=== PATIENT | male | born 1935 ===

== ENCOUNTER 2017-03-12 20:16 | Emergency (ER) | payer MEDICARE, SELFPAY ==
[2017-03-12 20:17] VITALS: BMI 28.3
--- NOTE | 2017-03-12 20:39 | C.PDOC ---
History Of Present Illness Patient is a 81 y/o male who presents to the ED with complaints of nausea, vomiting, and diarrhea for the last 3 days. Patient reports to have arrived from [place] last night; denies any SOB, fever, or chills. Patient notes decreased PO intake and is speaking in complete sentences. Patient has not vomited today, but notes feeling nauseous. No other physical complaints at this time. Time Seen by Provider: 03/12/17 20:38 Chief Complaint (Nursing): Abdominal Pain History Per: Patient History/Exam Limitations: no limitations Onset/Duration Of Symptoms: Days (3 days ago) Current Symptoms Are (Timing): Still Present Severity: Moderate Pain Scale Rating Of: 4 Associated Symptoms: Nausea, Vomiting, Diarrhea Recent travel outside of the [place]: Yes ([place]; arrived last night) Additional History Per: Patient Past Medical History Reviewed: Historical Data, Nursing Documentation, Vital Signs Vital Signs: Last Vital Signs Temp 97.4 F L 03/12/17 20:28 Pulse 86 03/12/17 23:44 Resp 21 03/12/17 23:44 BP 104/48 L 03/12/17 23:44 Pulse Ox 98 03/12/17 23:44 - Medical History PMH: Asthma, Gastritis, HTN, Pneumonia Surgical History: No Surg Hx - [facility] Procedures VACCINATION NEC (11/10/12) Family History: States: No Known Family Hx - Social History Hx Tobacco Use: No Hx Alcohol Use: No Hx Substance Use: No - Immunization History Hx Tetanus Toxoid Vaccination: No Hx Influenza Vaccination: Yes Hx Pneumococcal Vaccination: Yes Review Of Systems Constitutional: Negative for: Fever, Chills Respiratory: Positive for: Other (speaking in full sentences). Negative for: Shortness of Breath Gastrointestinal: Positive for: Nausea, Vomiting, Diarrhea, Other (decreased PO intake) Physical Exam - Physical Exam Appears: Non-toxic, No Acute Distress Skin: Warm, Dry Head: Normacephalic Oral Mucosa: Moist Chest: Symmetrical Cardiovascular: Rhythm Regular Respiratory: No Rales, No Rhonchi, No Wheezing Gastrointestinal/Abdominal: Soft, No Tenderness, Distention, No Guarding, No Ascites, Other (tympanic to percussion) Back: No CVA Tenderness Extremity: Normal ROM Neurological/Psych: Oriented x3, Normal Speech, Other (no focal deficits) ED Course And Treatment - Laboratory Results Result Diagrams: 03/12/17 21:50 03/12/17 21:50 ECG: Interpreted By Me, Viewed By Me ECG Rhythm: Sinus Rhythm (93), Nonspecific Changes O2 Sat by Pulse Oximetry: 97 Pulse Ox Interpretation: Normal Progress Note: Plan: EKG, UA, and blood work ordered. Pepcid, zofran, and IV fluids administered. Reevaluation Time: 00:49 Reassessment Condition: Improved Disposition Counseled Patient/Family Regarding: Studies Performed, Diagnosis, Need For Followup, Rx Given - Disposition Referrals: David Streeter MD [Staff Provider] - Disposition: HOME/ ROUTINE Disposition Time: 20:38 Condition: FAIR Additional Instructions: Please return if symptoms recur Prescriptions: Ondansetron ODT [Zofran ODT] 1 odt PO BID PRN #6 odt PRN Reason: Nausea/Vomiting Pantoprazole Sodium [Protonix] 20 mg PO DAILY #15 ect Instructions: Abdominal Pain (ED), Gas and Bloating (ED), Gastritis (DC) Forms: [employer] [facility] (Sinhala) - Clinical Impression Clinical Impression: Abdominal pain, Diarrhea - Scribe Statement The provider has reviewed the documentation as recorded by the Scribe Renee Villarreal All medical record entries made by the Scribe were at my direction and personally dictated by me. I have reviewed the chart and agree that the record accurately reflects my personal performance of the history, physical exam, medical decision making, and the department course for this patient. I have also personally directed, reviewed, and agree with the discharge instructions and disposition.
[2017-03-12] MEDS ORDERED: Sodium Chloride 0.9% 1,000 ML IV ONE (21:42)
[2017-03-12] MEDS ORDERED: Sodium Chloride 0.9% 1,000 ML ONE (21:53)
[2017-03-12 22:00] LABS: BASO % 0.5 % (0.0-2.0); EOS # 0.3 K/uL (0.0-0.7); EOS % 3.8 % (0.0-4.0); HEMOGLOBIN 11.7 g/dL (12.0-18.0); LYMPH # 2.1 K/uL (1.0-4.3); LYMPH % 26.1 % (20.0-40.0); MEAN CELL VOLUME 80.5 fL (80.0-94.0); MEAN CORPUSCULAR HEMOGLOBIN 28.1 pg (27.0-31.0); MEAN PLATELET VOLUME 7.4 fL (7.2-11.7); MONO # 1.4 K/uL (0.0-0.8); MONO % 17.4 % (0.0-10.0); NEUT # 4.2 K/uL (1.8-7.0); NEUT % 52.2 % (50.0-75.0); RBC 4.15 Mil/uL (4.40-5.90); RED CELL DISTRIBUTION WIDTH 14.1 % (11.5-14.5); WHITE BLOOD COUNT 8.1 K/uL (4.8-10.8)
[2017-03-12 22:09] LABS: INR 1.4; PROTHROMBIN TIME 15.4 SECONDS (9.7-12.2)
[2017-03-12 22:29] LABS: URINE BACTERIA RARE (<OCC); URINE BILIRUBIN NEGATIVE (NEGATIVE); URINE BLOOD NEGATIVE (NEGATIVE); URINE CLARITY Clear (Clear); URINE COLOR Straw (YELLOW); URINE GLUCOSE (UA) NORMAL (Normal); URINE LEUKOCYTE ESTERASE NEG Leu/uL (Negative); URINE NITRATE NEGATIVE (NEGATIVE); URINE PROTEIN NEGATIVE (NEGATIVE); URINE UROBILINOGEN NORMAL mg/dL (0.2-1.0)
[2017-03-12 23:03] LABS: ALB/GLOB RATIO 1.2 (1.0-2.1); ALBUMIN 3.7 g/dL (3.5-5.0); ALT/SGPT 29 U/L (21-72); AST/SGOT 37 U/L (17-59); BLOOD UREA NITROGEN 16 mg/dL (9-20); CALCIUM 8.6 mg/dl (8.6-10.4); GFR AFRICAN-AMERICAN > 60; GFR NON-AFRICAN AMERICAN 53; LIPASE 121 U/L (23-300)
[2017-03-12] MEDS ORDERED: Iohexol 350mg/ml 100 ML ONE (23:22)
--- NOTE | 2017-03-13 00:20 | CT ---
EXAM: CT Abdomen and Pelvis With Intravenous Contrast EXAM DATE/TIME: 03/12/2017 11:06 PM CLINICAL HISTORY: 81 years old, male; Pain; Abdominal pain; Patient HX: 11-10-12 images sent; Additional info: Abd pain TECHNIQUE: Axial computed tomography images of the abdomen and pelvis with intravenous contrast. All CT scans at this facility use one or more dose reduction techniques, viz.: automated exposure control; ma/kV adjustment per patient size (including targeted exams where dose is matched to indication; i.e. head); or iterative reconstruction technique. Coronal and sagittal reformatted images were created and reviewed. CONTRAST: 100 mL of [id number] administered intravenously. COMPARISON: CT - CHEST,ABD,PEL W/IV PO CONTRAST 2012-11-10 19:51 FINDINGS: Lower thorax: Heart size is normal. There is a small hiatal hernia. There is minimal atelectasis and scarring at the lung bases. ABDOMEN: Liver: There is fatty infiltration of the liver. Gallbladder and bile ducts: Gallbladder is partially distended. Common duct is prominent. Pancreas: Pancreas is mildly atrophic. Spleen: unremarkable Adrenals: unremarkable Kidneys and ureters: There is a small left renal cyst. There are additional small bilateral low-attenuation renal lesions too small to accurately characterize. There is no pelvocaliectasis or ureterectasis. Stomach and bowel: Stomach is almost empty. Rotation is normal. Small bowel is mildly distended with fluid and air. There is no obstruction. Terminal ileum is unremarkable. Appendix is not visualized. There is no pericecal inflammation. Colon is incompletely distended which limits evaluation. surgical clips at the base of the cecum. Appendix: See stomach and bowel PELVIS: Bladder: Bladder is partially distended. Reproductive: Seminal vesicles and prostate are unremarkable. ABDOMEN and PELVIS: Intraperitoneal space: There is no free air or free fluid. Bones/joints: There are degenerative changes in the osseus structures. Soft tissues: There is a small fat-containing umbilical hernia Nodes: There is no pathologic adenopathy. IMPRESSION: No acute solid visceral abnormality; possible ileus, no obstruction Additional nonemergent findings as described above.
[2017-03-13] MEDS ORDERED: Potassium Chloride 10 mEq ER Tab PO STA (00:52)
[2017-03-13 01:21] VITALS: BP 118/66; PULSE 88; RESP 20; TEMP 98.4; O2SAT 98
--- NOTE | 2017-03-17 15:52 | CARD ---
APPROVED REPORT EKG Measurement Heart [id number] <Conclusion> Normal sinus rhythm Normal ECG
== END 2017-03-13 01:19 | disposition home or self-care (01) ==
LOC: C.ER 20:16
DX: R10.9 Unspecified abdominal pain (principal); R19.7 Diarrhea, unspecified; E87.6 Hypokalemia
CPT/HCPCS: 74177; 80053; 81001; 83690; 85025; 85610; 85730; 96374; 96375; 99285; J2405; J7040; Q9967

== ENCOUNTER 2018-03-10 09:21 | Outpatient (CLI) | payer MEDICARE | END 2018-03-10 09:22 | disposition home or self-care (01) | LOC: C.CARD 09:21 | DX: R94.31 Abnormal electrocardiogram [ECG] [EKG] (principal) ==

== ENCOUNTER 2018-05-23 15:47 | Observation (INO) | payer MEDICARE ==
[2018-05-23 15:47] VITALS: BMI 28.3
--- NOTE | 2018-05-23 16:47 | C.PDOC ---
History Of Present Illness Patient is a 82 year old male who presents to the ED with his family for evaluation after family saw his eyes roll back and patient became dizzy while sitting on the bed an hour ago today. Patient's family also reports that patient has been coughing a lot and he has started c/o dry tongue and burning lower abdominal pain while in the ED. Patient's family denies any fever, chills, syncopal episodes, CP, SOB, nausea, vomiting, or diarrhea. Time Seen by Provider: 05/23/18 16:21 Chief Complaint (Nursing): Flu-like Symptoms History Per: Patient, Family History/Exam Limitations: no limitations Onset/Duration Of Symptoms: Hrs Recent travel outside of the [place]: No Additional History Per: Patient, Family Past Medical History Reviewed: Historical Data, Nursing Documentation, Vital Signs Vital Signs: Last Vital Signs Temp 98.5 F 05/23/18 15:50 Pulse 92 H 05/23/18 15:50 Resp 19 05/23/18 15:50 BP 138/68 05/23/18 15:50 Pulse Ox 96 05/23/18 15:50 - Medical History PMH: Asthma, Gastritis, HTN, Pneumonia Surgical History: Appendectomy - [facility] Procedures VACCINATION NEC (11/10/12) Family History: States: No Known Family Hx - Social History Hx Tobacco Use: No Hx Alcohol Use: No Hx Substance Use: No - Immunization History Hx Tetanus Toxoid Vaccination: No Hx Influenza Vaccination: Yes Hx Pneumococcal Vaccination: Yes Review Of Systems Except As Marked, All Systems Reviewed And Found Negative. Constitutional: Negative for: Fever, Chills ENT: Positive for: Other (dry tongue) Cardiovascular: Negative for: Palpitations Respiratory: Positive for: Cough. Negative for: Shortness of Breath Gastrointestinal: Positive for: Abdominal Pain (lower). Negative for: Nausea, Vomiting Neurological: Positive for: Dizziness Physical Exam - Physical Exam Appears: Non-toxic, No Acute Distress Skin: Normal Color, Warm, Dry Head: Atraumatic, Normacephalic Chest: Symmetrical, No Deformity Cardiovascular: Rhythm Regular, No Murmur Respiratory: No Rales, No Rhonchi, No Wheezing, Other (NARD) Extremity: Normal ROM ED Course And Treatment - Laboratory Results Result Diagrams: 05/23/18 16:59 05/23/18 16:59 ECG: Interpreted By Me ECG Rhythm: Sinus Rhythm ECG Interpretation: Normal Rate From EC O2 Sat by Pulse Oximetry: 96 (on RA ) Pulse Ox Interpretation: Normal - Radiology CXR: Interpreted by Me CXR Interpretation: Yes: No Acute Disease Progress Note: Plan: VBG. EKG. Labs. Urinalysis Progress - Re-Evaluation Re-evaluation Note: 05/23/18 17:47 NO RECUR SX SINCE INITIAL EVAL. APEARS COMFORTABLE. ADMIT SYNCOPE VS SZ D/W DR RIDDLE WILL ADMIT - Data Reviewed Data Reviewed: Lab, Diagnostic imaging, EKG, Old records Disposition Counseled Patient/Family Regarding: Studies Performed, Diagnosis - Disposition Disposition: HOSPITALIZED Disposition Time: 17:47 Condition: STABLE Forms: [employer] [facility] (Moroccan) - Clinical Impression Clinical Impression: Syncope - Scribe Statement The provider has reviewed the documentation as recorded by the Lotusibjaun Garcia All medical record entries made by the Scribe were at my direction and personally dictated by me. I have reviewed the chart and agree that the record accurately reflects my personal performance of the history, physical exam, medical decision making, and the department course for this patient. I have also personally directed, reviewed, and agree with the discharge instructions and disposition.
[2018-05-23 17:15] LABS: BASO % 0.2 % (0.0-2.0); EOS # 0.6 K/uL (0.0-0.7); HEMOGLOBIN 12.6 g/dL (12.0-18.0); LYMPH # 3.2 K/uL (1.0-4.3); LYMPH % 16.3 % (20.0-40.0); MEAN CELL VOLUME 80.6 fL (80.0-94.0); MEAN CORPUSCULAR HEMOGLOBIN 26.4 pg (27.0-31.0); MEAN CORPUSCULAR HGB CONC 32.7 g/dL (33.0-37.0); MEAN PLATELET VOLUME 7.6 fL (7.2-11.7); MONO # 2.2 K/uL (0.0-0.8); NEUT # 13.7 K/uL (1.8-7.0); NEUT % 69.5 % (50.0-75.0); NRBC % 0.1 % (0.0-2.0); RBC 4.78 Mil/uL (4.40-5.90); RED CELL DISTRIBUTION WIDTH 14.2 % (11.5-14.5)
[2018-05-23 17:18] LABS: WHITE BLOOD COUNT 19.7 K/uL (4.8-10.8)
[2018-05-23 17:20] LABS: ALB/GLOB RATIO 1.6 (1.0-2.1); ALBUMIN 4.5 g/dL (3.5-5.0); ALT/SGPT 12 U/L (21-72); AST/SGOT 27 U/L (17-59); BLOOD UREA NITROGEN 23 mg/dL (9-20); CALCIUM 9.6 mg/dl (8.6-10.4); GFR NON-AFRICAN AMERICAN 58
[2018-05-23 17:24] LABS: VENOUS BLOOD GAS BASE EXCESS -1.1 mmol/L (0.0-2.0); VENOUS BLOOD GAS PCO2 42 mmHg (40-60); VENOUS BLOOD GAS PO2 30 mm/Hg (30-55); VENOUS BLOOD PH 7.37 (7.32-7.43)
--- NOTE | 2018-05-23 17:38 | RAD ---
Date of service: 05/23/2018 PROCEDURE: CHEST RADIOGRAPH, 1 VIEW HISTORY: AMS COMPARISON: 11/10/2012. FINDINGS: LUNGS: Clear. PLEURA: No pneumothorax or pleural fluid seen. CARDIOVASCULAR: No aortic atherosclerotic calcification present. Normal. OSSEOUS STRUCTURES: No significant abnormalities. VISUALIZED UPPER ABDOMEN: Normal. OTHER FINDINGS: None. IMPRESSION: No active disease.No significant interval change compared to the prior examination(s).
[2018-05-23 18:21] VITALS: RESP 20
[2018-05-23 18:25] LABS: URINE BILIRUBIN NEGATIVE (NEGATIVE); URINE BLOOD NEGATIVE (NEGATIVE); URINE CLARITY Clear (Clear); URINE COLOR Yellow (YELLOW); URINE GLUCOSE (UA) NORMAL (Normal); URINE LEUKOCYTE ESTERASE NEG Leu/uL (Negative); URINE PROTEIN NEGATIVE (NEGATIVE); URINE UROBILINOGEN NORMAL mg/dL (0.2-1.0)
--- NOTE | 2018-05-23 18:44 | CT ---
Date of service: 05/23/2018 PROCEDURE: CT HEAD WITHOUT CONTRAST. HISTORY: AMS COMPARISON: None available. TECHNIQUE: Axial computed tomography images were obtained through the head/brain without intravenous contrast. Radiation dose: Total exam DLP = 897.23 mGy-cm. This CT exam was performed using one or more of the following dose reduction techniques: Automated exposure control, adjustment of the mA and/or kV according to patient size, and/or use of iterative reconstruction technique. FINDINGS: HEMORRHAGE: No intracranial hemorrhage. BRAIN: Diffuse atrophy with prominence of the ventricles and sulci noted. No mass effect or edema. Dense intracranial atherosclerosis. Patchy right frontal and occipital encephalomalacia. Mild to moderate periventricular and subcortical white matter hypodensities, which are nonspecific, but often seen with chronic microvascular ischemic disease. Please note that MRI with diffusion imaging is more sensitive in the detection of acute ischemic event. VENTRICLES: No hydrocephalus. CALVARIUM: Unremarkable. PARANASAL SINUSES: Extensive opacification of the ethmoid air cells, bilateral frontal, maxillary, and sphenoid sinuses. MASTOID AIR CELLS: Under aeration of the mastoid air cells; correlate clinically for history of mastoiditis. OTHER FINDINGS: None. IMPRESSION: Patchy right frontal and occipital encephalomalacia. Mild moderate nonspecific white matter changes. Generalized atrophy. Extensive opacification of the ethmoid air cells, bilateral frontal, maxillary, and sphenoid sinuses. Under aeration of the mastoid air cells; correlate clinically for history of mastoiditis.
[2018-05-23] MEDS: (Novolin R) Insulin Human Regular 100 units/ml vial SC SCH (21:19)
[2018-05-23] MEDS: guaiFENesin 600 mg ER Tab PO SCH (21:20)
--- NOTE | 2018-05-23 21:44 | CP.PCM.HP ---
Present on Admission - Present on Admission Any Indicators Present on Admission: No Past Patient History - Infectious Disease Hx of Infectious Diseases: None - Past Social History Smoking Status: Never Smoked - CARDIAC Hx Hypertension: Yes - PULMONARY Hx Asthma: Yes Hx Pneumonia: Yes - NEUROLOGICAL HX Cerebrovascular Accident: Yes - GASTROINTESTINAL Hx Gastritis: Yes - PSYCHIATRIC Hx Substance Use: No - SURGICAL HISTORY Hx Appendectomy: Yes - ANESTHESIA Hx Anesthesia: No Meds Allergies/Adverse Reactions: Allergies Allergy/AdvReac Type Severity Reaction Status Date / Time Penicillins Allergy Severe Verified 05/23/18 15:58 Results - Vital Signs Recent Vital Signs: Last Vital Signs Temp 98 F 05/23/18 20:05 Pulse 86 05/23/18 20:05 Resp 20 05/23/18 20:05 BP 158/80 H 05/23/18 20:05 Pulse Ox 96 05/23/18 20:05 - Labs Result Diagrams: 05/23/18 16:59 05/23/18 16:59 Labs: Laboratory Results - last 24 hr 05/23/18 05/23/18 05/23/18 16:03 16:59 16:59 WBC 19.7 H D RBC 4.78 Hgb 12.6 Hct 38.5 MCV 80.6 MCH 26.4 L MCHC 32.7 L RDW 14.2 Plt Count 310 MPV 7.6 Neut % (Auto) 69.5 Lymph % (Auto) 16.3 L Ross % (Auto) 11.0 H Eos % (Auto) 3.0 Baso % (Auto) 0.2 Neut # (Auto) 13.7 H Lymph # (Auto) 3.2 Ross # (Auto) 2.2 H Eos # (Auto) 0.6 Baso # (Auto) 0.0 D-Dimer, Quantitative pO2 VBG pH VBG pCO2 VBG HCO3 VBG Total CO2 VBG O2 Sat (Calc) VBG Base Excess VBG Potassium Glucose Lactate Sodium 132 Potassium 4.1 Chloride 95 L Carbon Dioxide 28 Anion Gap 12 BUN 23 H Creatinine 1.2 Est GFR ( Amer) > 60 Est GFR (Non-Af Amer) 58 POC Glucose (mg/dL) 120 H Random Glucose 119 H Calcium 9.6 Total Bilirubin 0.3 AST 27 ALT 12 L D Alkaline Phosphatase 57 Troponin I < 0.0120 Total Protein 7.3 Albumin 4.5 Globulin 2.8 Albumin/Globulin Ratio 1.6 Venous Blood Potassium Urine Color Urine Clarity Urine pH Ur Specific [place] Urine Protein Urine Glucose (UA) Urine Ketones Urine Blood Urine Nitrate Urine Bilirubin Urine Urobilinogen Ur Leukocyte Esterase Urine WBC (Auto) Urine RBC (Auto) 05/23/18 05/23/18 05/23/18 16:59 17:16 17:50 WBC RBC Hgb Hct MCV MCH MCHC RDW Plt Count MPV Neut % (Auto) Lymph % (Auto) Ross % (Auto) Eos % (Auto) Baso % (Auto) Neut # (Auto) Lymph # (Auto) Ross # (Auto) Eos # (Auto) Baso # (Auto) D-Dimer, Quantitative 204 pO2 30 VBG pH 7.37 VBG pCO2 42 VBG HCO3 22.9 VBG Total CO2 25.6 VBG O2 Sat (Calc) 61.9 VBG Base Excess -1.1 L VBG Potassium 3.3 L Glucose 100 Lactate 0.7 Sodium 135.0 Potassium Chloride 102.0 Carbon Dioxide Anion Gap BUN Creatinine Est GFR ( Amer) Est GFR (Non-Af Amer) POC Glucose (mg/dL) Random Glucose Calcium Total Bilirubin AST ALT Alkaline Phosphatase Troponin I Total Protein Albumin Globulin Albumin/Globulin Ratio Venous Blood Potassium 3.3 L Urine Color Yellow Urine Clarity Clear Urine pH 5.0 Ur Specific [place] 1.015 Urine Protein Negative Urine Glucose (UA) Normal Urine Ketones Negative Urine Blood Negative Urine Nitrate Negative Urine Bilirubin Negative Urine Urobilinogen Normal Ur Leukocyte Esterase Neg Urine WBC (Auto) 1 Urine RBC (Auto) 1
[2018-05-23] MEDS: Albuterol-Ipratrop 3 mg / 0.5 (3 ml) UD INH SCH (22:01)
[2018-05-23 23:31] LABS: CK-MB 2.57 ng/mL (0.0-3.38)
[2018-05-24] MEDS: Albuterol-Ipratrop 3 mg / 0.5 (3 ml) UD INH SCH ×2 (02:41→09:30)
--- NOTE | 2018-05-24 05:41 | HP ---
CHIEF COMPLAINT: Syncope. HISTORY OF PRESENT ILLNESS: This is an 82-year-old Citizen Of [place] male, well known to me with a history of hypertension, hyperlipidemia, cerebral atherosclerosis, prior TIA, COPD, osteoarthritis. The patient is compliant with his diet, medication, and followup. Today, he was sitting at home. The patient does not remember event but according to his while he was sitting, she saw his eyes rolling backwards and the patient getting dizzy, and the patient kept leaning backwards till he passed out, and he passed out with complete loss of consciousness for a few seconds, and then the patient regained consciousness. He did not have any froth in the mouth or tongue bite. There is no history of chest pain or palpitation. There is no history of any spinning sensation prior or after the episode. There is no history of bright or black spots in front of the eyes. There is cough, congestion, and wheezing, but he was treated by me with steroids last week, and he did well now. The patient is afebrile. No nausea or vomiting. There is no history of polyuria, polydipsia, or polyphagia. There is no history of hematuria or pyuria. There is no history of sneezing, itchy eyes, or itchy nose. There is no history of fever. There is no history of trauma, fall, or loss of consciousness. PAST MEDICAL HISTORY: COPD, hypertension, cerebral atherosclerosis, gastroesophageal reflux disease. SOCIAL HISTORY: Non-smoker, non-EtOH user. CURRENT MEDICATIONS: At home, he takes multiple medications including Diovan, HCTZ, aspirin, Crestor, Creon, Phenergan with codeine, Flomax, Proscar. PHYSICAL EXAMINATION: GENERAL: An elderly male who is not in any distress. He is slow to respond. VITAL SIGNS: Blood pressure 138/68, pulse 92, respiratory rate 20, temperature 98.5. SKIN: Senile turgor. No bruises. No purpura. No petechia. No ecchymosis. HEENT: Atraumatic and normocephalic. Negative pallor. Negative jaundice. Extraocular movements are intact. NECK: Supple. No JVD. No lymph node. No thyromegaly. CHEST WALL: Bilateral symmetrical expansion. No tenderness. No deformity. LUNGS: Bilaterally decreased air entry. Few scattered rhonchi. CARDIOVASCULAR SYSTEM: PMI in the fifth intercostal space. S1 and S2 are regular. No heave. No thrill. ABDOMEN: Soft, nontender. Bowel sounds are positive. RECTAL: Enlarged prostate. EXTREMITIES: No clubbing, cyanosis or edema. CENTRAL NERVOUS SYSTEM: Awake, alert, oriented x3. Cranial nerves II through XII are normal. Power 5/5 x4. Plantars are downgoing. Unable to check gait. He feels weak and dizzy. ASSESSMENT: 1. Dizziness, syncope, rule out cardiac arrhythmia, rule out coronary ischemia, rule out cerebrovascular accident/transient ischemic attack, rule out vertebrobasilar insufficiency, rule out dehydration, rule out electrolyte imbalance. 2. Hypertension. 3. Chronic obstructive pulmonary disease exacerbation which seems to be getting in remission. 4. Hyperlipidemia. PLAN: Admit under observation. Telemetry. Cardiac enzymes. Monitor the patient. David Streeter MD
[2018-05-24] MEDS: (Novolin R) Insulin Human Regular 100 units/ml vial SC SCH ×2 (07:42→12:31)
[2018-05-24 08:00] VITALS: BP 138/70; TEMP 98.3
[2018-05-24 08:34] VITALS: PULSE 84; O2SAT 89
[2018-05-24] MEDS: guaiFENesin 600 mg ER Tab PO SCH (09:40)
[2018-05-24] MEDS ORDERED: Pantoprazole 40 mg EC Tab PO SCH (10:00)
[2018-05-24] MEDS ORDERED: Enoxaparin 40 mg Syringe SC SCH (10:00)
[2018-05-24] MEDS ORDERED: Metoprolol Succinate 50 mg XL Tab PO SCH (10:00)
--- NOTE | 2018-05-24 12:45 | VASCLAB ---
Date of service: 05/24/2018 PROCEDURE: Carotid Duplex Exam. HISTORY: Syncope COMPARISON: None available. TECHNIQUE: Grayscale and duplex Doppler evaluation of the cervical carotid and vertebral arteries were performed. The common carotid, carotid bifurcations and cervical Internal Carotid Artery (ICA) and proximal External Carotid Artery (ECA) were evaluated. The vertebral arteries were evaluated for gross patency and flow direction. Report prepared by Prasanth Manley, BS, RVT FINDINGS: RIGHT CAROTID ARTERIES: 1. Common Carotid Artery: No significant focal plaque formation of the right common carotid artery. Maximum Peak Systolic velocity: 88 cm/sec: End-diastolic velocity 11 cm/sec. 2. Carotid Bifurcation: plaque formation. Maximum Peak Systolic velocity: 80 cm/sec: End-diastolic velocity 15 cm/sec. 3. Internal Carotid Artery: Plaque description: 3.1. Proximal Segment: Peak systolic velocity 117 cm/sec: End-diastolic velocity 27 cm/sec - % stenosis 0-15% 3.2. Middle Segment: Peak systolic velocity 70 cm/sec: End-diastolic velocity 19 cm/sec - % stenosis 0-15% 3.3. Distal Segment: Peak systolic velocity 94 cm/sec: End-diastolic velocity 21 cm/sec - % stenosis 0-15% 4. External Carotid Artery: No significant focal plaque formation. Peak systolic velocity 94 cm/sec 5. ICA/CCA Ratio: 1.3 LEFT CAROTID ARTERIES: 1. Common Carotid Artery: No significant focal plaque formation of the left common carotid artery. Maximum Peak Systolic velocity: 107 cm/sec: End-diastolic velocity 23 cm/sec. 2. Carotid Bifurcation: plaque formation. Maximum Peak Systolic velocity: 131 cm/sec: End-diastolic velocity 25 cm/sec. 3. Internal Carotid Artery: Plaque description: 3.1. Proximal Segment: Peak systolic velocity 79 cm/sec: End-diastolic velocity 12 cm/sec - % stenosis 0-15% 3.2. Middle Segment: Peak systolic velocity 66 cm/sec: End-diastolic velocity 19 cm/sec - % stenosis 0-15% 3.3. Distal Segment: Peak systolic velocity 49 cm/sec: End-diastolic velocity 14 cm/sec - % stenosis 0-15% 4. External Carotid Artery: No significant focal plaque formation. Peak systolic velocity 155 cm/sec 5. ICA/CCA Ratio: 1.2 VERTEBRAL ARTERIES: 1. Right Vertebral Artery: The right vertebral artery flow direction is antegrade. 2. Left Vertebral Artery: The left vertebral artery flow direction is antegrade. OTHER FINDINGS: 1. Right Brachial Blood pressure: 100 mmHg. 2. Left Brachial Blood pressure: mmHg. 3. No atherosclerotic calcification present IMPRESSION: RIGHT: Duplex scan does not suggest hemodynamically significant stenosis of the right extracranial carotid arteries. LEFT: Duplex scan does not suggest hemodynamically significant stenosis of the left extracranial carotid arteries.
--- NOTE | 2018-05-24 17:58 | CP.PCM.PN ---
Subjective - Date & Time of Evaluation Date of Evaluation: 05/24/18 Time of Evaluation: 11:00 - Subjective Subjective: alert, oriented, no sob or chest pains, NAD. Objective - Vital Signs/Intake and Output Vital Signs (last 24 hours): Temp Pulse Resp BP Pulse Ox 98.3 F 84 20 138/70 89 L 05/24/18 07:00 05/24/18 08:33 05/24/18 07:00 05/24/18 07:00 05/24/18 13:35 - Labs Labs: 05/23/18 16:59 05/23/18 16:59 Assessment and Plan - Assessment and Plan (Free Text) Assessment: 82 year old male admitted with syncopal episode, seen and examined. Alert and oriented, has some non productive cough, no acute distress. As per DR Streeter, plan to discharge home today. Advised to continue with the cough syrup and the antibiotic at home. Advised to follow up with PMD this week.
--- NOTE | 2018-05-24 21:39 | CP.PCM.DIS ---
Provider - Provider Date of Admission: 05/23/18 17:49 Attending physician: David Streeter MD Consults: 05/23/18 19:03 Cardiology Consult Routine Comment: syncope Consulting Provider: Estuardo Velasco Consulting Physician: Estuardo Velasco Reason for Consult: syncope Time Spent in preparation of Discharge (in minutes): 30 Hospital Course - Lab Results Lab Results: Most Recent Lab Values WBC 19.7 K/uL (4.8-10.8) H D 05/23/18 16:59 RBC 4.78 Mil/uL (4.40-5.90) 05/23/18 16:59 Hgb 12.6 g/dL (12.0-18.0) 05/23/18 16:59 Hct 38.5 % (35.0-51.0) 05/23/18 16:59 MCV 80.6 fL (80.0-94.0) 05/23/18 16:59 MCH 26.4 pg (27.0-31.0) L 05/23/18 16:59 MCHC 32.7 g/dL (33.0-37.0) L 05/23/18 16:59 RDW 14.2 % (11.5-14.5) 05/23/18 16:59 Plt Count 310 K/uL (130-400) 05/23/18 16:59 MPV 7.6 fL (7.2-11.7) 05/23/18 16:59 Neut % (Auto) 69.5 % (50.0-75.0) 05/23/18 16:59 Lymph % (Auto) 16.3 % (20.0-40.0) L 05/23/18 16:59 [place] % (Auto) 11.0 % (0.0-10.0) H 05/23/18 16:59 Eos % (Auto) 3.0 % (0.0-4.0) 05/23/18 16:59 Baso % (Auto) 0.2 % (0.0-2.0) 05/23/18 16:59 Neut # (Auto) 13.7 K/uL (1.8-7.0) H 05/23/18 16:59 Lymph # (Auto) 3.2 K/uL (1.0-4.3) 05/23/18 16:59 Norman # (Auto) 2.2 K/uL (0.0-0.8) H 05/23/18 16:59 Eos # (Auto) 0.6 K/uL (0.0-0.7) 05/23/18 16:59 Baso # (Auto) 0.0 K/uL (0.0-0.2) 05/23/18 16:59 D-Dimer, Quantitative 204 ng/mlDDU (0-243) 05/23/18 16:59 pO2 30 mm/Hg (30-55) 05/23/18 17:16 VBG pH 7.37 (7.32-7.43) 05/23/18 17:16 VBG pCO2 42 mmHg (40-60) 05/23/18 17:16 VBG HCO3 22.9 mmol/L 05/23/18 17:16 VBG Total CO2 25.6 mmol/L (22-28) 05/23/18 17:16 VBG O2 Sat (Calc) 61.9 % (40-65) 05/23/18 17:16 VBG Base Excess -1.1 mmol/L (0.0-2.0) L 05/23/18 17:16 VBG Potassium 3.3 mmol/L (3.6-5.2) L 05/23/18 17:16 Sodium 135.0 mmol/l (132-148) 05/23/18 17:16 Chloride 102.0 mmol/L (98-107) 05/23/18 17:16 Glucose 100 mg/dl (75-110) 05/23/18 17:16 Lactate 0.7 mmol/L (0.7-2.1) 05/23/18 17:16 Sodium 132 mmol/L (132-148) 05/23/18 16:59 Potassium 4.1 mmol/L (3.6-5.2) 05/23/18 16:59 Chloride 95 mmol/L (98-107) L 05/23/18 16:59 Carbon Dioxide 28 mmol/L (22-30) 05/23/18 16:59 Anion Gap 12 (10-20) 05/23/18 16:59 BUN 23 mg/dL (9-20) H 05/23/18 16:59 Creatinine 1.2 mg/dL (0.8-1.5) 05/23/18 16:59 Est GFR ( Amer) > 60 05/23/18 16:59 Est GFR (Non-Af Amer) 58 05/23/18 16:59 POC Glucose (mg/dL) 225 mg/dL (65-110) H 05/24/18 11:41 Random Glucose 119 mg/dL (75-110) H 05/23/18 16:59 Calcium 9.6 mg/dl (8.6-10.4) 05/23/18 16:59 Total Bilirubin 0.3 mg/dL (0.2-1.3) 05/23/18 16:59 AST 27 U/L (17-59) 05/23/18 16:59 ALT 12 U/L (21-72) L D 05/23/18 16:59 Alkaline Phosphatase 57 U/L (38-126) 05/23/18 16:59 Total Creatine Kinase 74 U/L (55-170) 05/23/18 22:36 CK-MB (Mass) 2.57 ng/mL (0.0-3.38) 05/23/18 22:36 Troponin I < 0.0120 ng/mL (0.00-0.120) 05/23/18 22:36 Total Protein 7.3 g/dL (6.3-8.3) 05/23/18 16:59 Albumin 4.5 g/dL (3.5-5.0) 05/23/18 16:59 Globulin 2.8 gm/dL (2.2-3.9) 05/23/18 16:59 Albumin/Globulin Ratio 1.6 (1.0-2.1) 05/23/18 16:59 Venous Blood Potassium 3.3 mmol/L (3.6-5.2) L 05/23/18 17:16 Urine Color Yellow (YELLOW) 05/23/18 17:50 Urine Clarity Clear (Clear) 05/23/18 17:50 Urine pH 5.0 (5.0-8.0) 05/23/18 17:50 Ur Specific [place] 1.015 (1.003-1.030) 05/23/18 17:50 Urine Protein Negative mg/dL (NEGATIVE) 05/23/18 17:50 Urine Glucose (UA) Normal mg/dL (Normal) 05/23/18 17:50 Urine Ketones Negative mg/dL (NEGATIVE) 05/23/18 17:50 Urine Blood Negative (NEGATIVE) 05/23/18 17:50 Urine Nitrate Negative (NEGATIVE) 05/23/18 17:50 Urine Bilirubin Negative (NEGATIVE) 05/23/18 17:50 Urine Urobilinogen Normal mg/dL (0.2-1.0) 05/23/18 17:50 Ur Leukocyte Esterase Neg Jennifer/uL (Negative) 05/23/18 17:50 Urine WBC (Auto) 1 /hpf (0-5) 05/23/18 17:50 Urine RBC (Auto) 1 /hpf (0-3) 05/23/18 17:50 Discharge Plan - Follow Up Plan Condition: STABLE Disposition: HOME/ ROUTINE Instructions: Heart Healthy Diet, Syncope (Fainting) (DC) Additional Instructions: continue with the home medications including the oral antibiotics and cough medication follow up in the office in 1 week Referrals: David Streeter MD [Staff Provider] -
--- NOTE | 2018-05-25 04:09 | DS ---
DISCHARGE DIAGNOSES: 1. Syncope. 2. Chronic obstructive pulmonary disease. 3. Hypertension. 4. Hyperlipidemia. 5. Carotid stenosis. HISTORY OF PRESENT ILLNESS: This is an 82-year-old [place] male with history of COPD, GERD, osteoarthritis, cerebral atherosclerosis, came in because of syncope. The patient had complete loss of consciousness for few seconds. He regained consciousness. The patient was admitted to the floor. Apparently, there were no obvious reasons for syncope. No cardiac arrhythmia. No chest pain. The patient was treated with neuro watch. Physical therapy evaluation. His medications were maintained. The patient underwent a carotid Doppler and an echocardiogram, and carotid Doppler is negative for any hemodynamically significant stenosis, and the patient was discharged. Condition upon discharge is stable. He will be followed up by me as an outpatient. David Streeter MD
== END 2018-05-24 14:33 | disposition home or self-care (01) ==
LOC: C.ER 15:47 → C.9E 17:49 → C.6T 18:24
PROVIDERS: ADMIT Internal Medicine; ATTEND Internal Medicine
DX: R55 Syncope and collapse (principal); J44.9 Chronic obstructive pulmonary disease, unspecified; I10 Essential (primary) hypertension; E78.5 Hyperlipidemia, unspecified; I65.29 Occlusion and stenosis of unspecified carotid artery; K21.9 Gastro-esophageal reflux disease without esophagitis; M19.90 Unspecified osteoarthritis, unspecified site; I67.2 Cerebral atherosclerosis
CPT/HCPCS: 36415; 70450; 71045; 80053; 81001; 82803; 82948; 84484; 85025; 85378; 93880; 94640; 97116; 97162; 99285; G0378; G8978; G8979; J1650

== ENCOUNTER 2018-07-07 08:34 | Outpatient (CLI) | payer MEDICARE | END 2018-07-07 08:35 | disposition home or self-care (01) | LOC: C.CARD 08:34 | DX: R55 Syncope and collapse (principal) ==